=== PATIENT | male | born 1960 ===

== ENCOUNTER 2020-08-26 16:52 | Emergency (ER) | payer SELFPAY ==
[~2020-08-26] VITALS: Ht 180.3 cm; Wt 122.5 kg
[2020-08-26 17:14] VITALS: BP 118/64
== END 2020-08-26 17:29 | disposition left against medical advice (07) ==
LOC: ER 16:52
DX: Z48.00 Encounter for change or removal of nonsurgical wound dressing (principal); Z53.21 Procedure and treatment not carried out due to patient leaving prior to being seen by health care provider